=== PATIENT | male | born 1995 | race American Indian/Alaskan Native ===

== ENCOUNTER 2021-08-26 10:32 | Emergency (ER) | payer SELFPAY ==
[2021-08-26] MEDS ORDERED: TETANUS,DIPH,PERTUSS(ACELL) VACCINE 0.5 ML SYRINGE IM ONE (10:41)
[2021-08-26] MEDS ORDERED: MORPHINE 4 MG/1 ML INJ IV ONE ×2 (10:42→11:43)
[2021-08-26] MEDS ORDERED: ONDANSETRON 4 MG/2 ML INJ IV ONE (10:42)
[2021-08-26 10:55] LABS: Hematocrit 44.7 % (35.5-45.6); Hemoglobin 14.5 gm/dl (11.8-15.2); Mean Corpuscular HGB Conc 32 % (32-34); Mean Corpuscular Volume 88 fl (84-94); Platelet Count 195 K/mm3 (140-440); Red Cell Distribution Width 14.4 % (13.2-15.2)
--- NOTE | 2021-08-26 11:06 | XRay Report ---
LEFT FEMUR 2 VIEW(S) INDICATION / CLINICAL INFORMATION: penetrating trauma, L thigh; r/o fb, gas COMPARISON: None available. FINDINGS: BONES / JOINT(S): No acute fracture or subluxation. No significant arthritis. SOFT TISSUES: Soft tissue laceration of the lateral portion of the mid left thigh. Minimal soft tissu e gas. No radiopaque foreign body. ADDITIONAL FINDINGS: None. IMPRESSION: 1. Lateral left thigh soft tissue laceration. No radiopaque foreign body. Signer Name: Ravi Greene MD Signed: 08/26/2021 11:01 AM Workstation Name: [id number]
[2021-08-26 11:09] LABS: Alanine Aminotransferase 31 units/L (7-56); Albumin 4.9 g/dL (3.9-5); BUN/Creatinine Ratio 9; Blood Urea Nitrogen 11 mg/dL (9-20); Calcium 9.9 mg/dL (8.4-10.2); Hemolysis Index 14
[2021-08-26 11:42] LABS: Total Cells Counted 100
[2021-08-26] MEDS ORDERED: SODIUM CHLORIDE 0.9% 1000 ML 1,000 ML IV ONE (11:42)
[2021-08-26 11:45] LABS: Anisocytosis 2+; Ovalocytes Few; Poikilocytosis Few
[2021-08-26 11:46] LABS: Large Platelets Rare; Platelet Estimate Consistent w Auto
--- NOTE | 2021-08-26 12:56 | Cat Scan Report ---
CT angio lower extremity LT INDICATION / CLINICAL INFORMATION: Penetrating trauma to left thigh, eval for vascula. TECHNIQUE: Axial CT images were obtained after injection of 100 mL Omnipaque 350 IV contrast using CTA protocol. 3 plane MIP / 3D reconstructions were produced. All CT scans at this location are performed using CT dose reduction for ALARA by means of automated exposure control. COMPARISON: None available. FINDINGS: Skin wound is seen in the left lateral thigh with subjacent subcutaneous air. There are no focal flui d collections. There is no appreciable hemorrhage. The arteries in the left thigh appear normal throughout. The entire visualized left portion of the ar teries are normal. IMPRESSION: 1. No acute vascular injury in the left lower extremity. Signer Name: Lj Gill MD Signed: 08/26/2021 12:52 PM Workstation Name: [id number]
[2021-08-26] MEDS ORDERED: LIDOCAINE 2%/EPINEPHRINE 1:100,000 VIAL (20 ML) INFILTRATI ONE (12:58)
[2021-08-26] MEDS ORDERED: SODIUM CHLORIDE IRRI 500 ML 500 ML IR ONE (13:27)
[2021-08-26] MEDS ORDERED: traMADol 50 MG TAB PO ONE (14:16)
[2021-08-26] MEDS ORDERED: KETOROLAC 30 MG/1 ML INJ IV ONE (14:17)
--- NOTE | 2021-08-26 14:23 | Emergency Department Report ---
- General Chief Complaint: Puncture Wound Stated Complaint: LEFT LEG WOUND Time Seen by Provider: 08/26/21 10:39 Source: patient Mode of arrival: Ambulatory Limitations: Physical Limitation - History of Present Illness Initial Comments: 26-year-old male with no known past medical history presents for evaluation of traumatic wound to his left thigh. 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 Patient denies any head injury or loss of consciousness. No tingling numbness in his arms or legs. He is not up to date with his tetanus immunization shot. Pain 12/12. He denies pain to any other location of his body. - Related Data Previous Rx's Medication Instructions Recorded Last Taken Type Ibuprofen [Motrin 800 MG tab] 800 mg PO Q8HR PRN 7 Days #21 08/26/21 Unknown Rx tablet cephALEXin [Keflex] 500 mg PO Q6HR 7 Days #28 capsule 08/26/21 Unknown Rx traMADoL [Ultram 50 MG tab] 50 mg PO Q6HR PRN #12 tablet 08/26/21 Unknown Rx Allergies Allergy/AdvReac Type Severity Reaction Status Date / Time No Known Allergies Allergy Verified 08/26/21 10:42 ED Review of Systems ROS: Stated complaint: LEFT LEG WOUND Other details as noted in HPI Comment: All other systems reviewed and negative Constitutional: no symptoms reported Eyes: denies: eye pain, eye discharge, vision change Respiratory: no symptoms reported Cardiovascular: as per HPI Gastrointestinal: as per HPI Genitourinary: as per HPI Musculoskeletal: as per HPI Skin: other (L thigh laceration ) Neurological: denies: headache, weakness, numbness, paresthesias, confusion, abnormal gait, vertigo, other Psychiatric: denies: anxiety, depression, auditory hallucinations, visual hallucinations, homicidal thoughts Hematological/Lymphatic: denies: easy bleeding, easy bruising, swollen glands ED Past Medical Hx - Past Medical History Previous Medical History?: Yes Hx Asthma: Yes - Medications Home Medications: Home Medications Medication Instructions Recorded Confirmed Last Taken Type Ibuprofen [Motrin 800 MG tab] 800 mg PO Q8HR PRN 7 Days #21 08/26/21 Unknown Rx tablet cephALEXin [Keflex] 500 mg PO Q6HR 7 Days #28 capsule 08/26/21 Unknown Rx traMADoL [Ultram 50 MG tab] 50 mg PO Q6HR PRN #12 tablet 08/26/21 Unknown Rx ED Physical Exam - General Limitations: No Limitations, Physical Limitation General appearance: alert, in no apparent distress - Head Head exam: Present: atraumatic, normocephalic, normal inspection - Eye Eye exam: Present: normal appearance, PERRL, EOMI Pupils: Present: normal accommodation - ENT ENT exam: Present: normal exam, normal orophraynx, mucous membranes moist - Neck Neck exam: Present: normal inspection, tenderness, full ROM - Respiratory Respiratory exam: Present: normal lung sounds bilaterally - Cardiovascular Cardiovascular Exam: Present: regular rate, normal rhythm - Extremities Exam Extremities exam: Present: full ROM, tenderness, normal capillary refill, other (5cm horizontal linear laceration to L anterior/medial thigh; no active bleeding, no muscle exposure, no tendon exposure, no visible foreign bodies, no pulsatile masses) - Neurological Exam Neurological exam: Present: alert, oriented X3, CN II-XII intact - Psychiatric Psychiatric exam: Present: normal affect, normal mood - Skin Skin exam: Present: warm, dry, other (Laceration site noted, no active bleeding, patient had intact DP PT pulses in left lower extremity) ED Course Vital Signs 08/26/21 08/26/21 10:38 10:40 Pulse Rate 56 L 54 L Respiratory 18 16 Rate Blood Pressure 131/71 130/71 [Left] O2 Sat by Pulse 99 99 Oximetry - Reevaluation(s) Reevaluation #1: 08/26/21 14:33 Patient is comfortable and well-appearing. Laceration site reexamined. Patient denies any active pain at this time. We will continue to monitor. - Laceration /Wound Repair Left Thigh Wound Location: lower extremity Wound Length (cm): 5 Wound Explored: clean Irrigated w/ Saline (ccs): 500 Betadine Prep?: No Anesthesia: Lidocaine w/ Epi Volume Anesthetic (ccs): 12 Wound Debrided: minimal Number of Sutures: 11 (RAY PLACED) Layer Closure?: Yes Number Deep Layer Sutures: 0 Sterile Dressing Applied?: No Progress: Wound site approximated. Patient noted to have 5 cm laceration to the medial lateral aspect of his left thigh. Patient had no active bleeding. He had significant amount of subcutaneous fat present, less than 0.5 cm which was cut by me to allow for appropriate wound approximation for subsequent placement of ray. Wound site explored and patient had no visible tendons or muscle exposure. There were no visible foreign bodies present in the wound either. 11 ray placed and laceration was repaired by me. Pt tolerated procedure w/o difficulty.. ED Medical Decision Making - Lab Data Result diagrams: 08/26/21 10:40 08/26/21 10:40 - Radiology Data Radiology results: report reviewed - Medical Decision Making 26-year-old male presents for accidental injury to his left thigh, self- inflicted, in the setting of trying to prevent a fall. Vital signs stable. Wound site here has minimal bleeding. Patient was reassessed multiple times and he irma hemodynamically stable and neurovascularly intact. His lab work is grossly unremarkable. X-ray and CT angiogram of left lower extremity demonstrates no acute pathology. Laceration repair options discussed with the patient and the patient agreed to have ray placed. I placed 11 ray into the patient's wound site. Wound site was subsequently completely closed. Overlying Tegaderm was applied. Analgesics provided here with good effect. Patient stable for discharge to home. Advised to return in 10 days, on September 05, 2021, to have ray removed. No further emergent work-up warranted at this time. Patient deemed stable for discharge to home. Prior to discharge she was given strict verbal and written return precautions. Patient verbalized understanding and agreement the plan of care. Critical care attestation.: If time is entered above; I have spent that time in minutes in the direct care of this critically ill patient, excluding procedure time. ED Disposition Clinical Impression: Laceration Disposition: 01 HOME / SELF CARE / HOMELESS Is pt being admited?: No Does the pt Need Aspirin: No Condition: Stable Instructions: Laceration Care, Adult, Sutures, [place], or Adhesive Wound Closure, [id number] Additional Instructions: You have had 11 ray placed to your laceration site. Do not get the site wet for 24 hours. Thereafter, you may gently clean the area with warm soap and water. Be sure to make sure that the area is dried completely. Apply [id number]-[id number] bacitracin ointment, 2-3 times a day for the next 10 days on your laceration site. Because of your injury, you are being placed on oral antibiotics, Keflex, as a precaution. Take 1 tablet 4 times a day for 10 days. Take ibuprofen as needed for pain. For any severe pain, you may take ibuprofen. If your pain is not being improved by ibuprofen, he may take tramadol. Return here, to any emergency department, or to any urgent care center on September 05, 2021, to have your ray removed. Please observe your symptoms very carefully. Return to the nearest emergency department soon as possible if you develop severe worsening pain, yellow drainage from your wound, spreading redness, any fever of 100.4 Fahrenheit or higher, or if any other new worrisome symptoms develop Prescriptions: cephALEXin [Keflex] 500 mg PO Q6HR 7 Days #28 capsule Ibuprofen [Motrin 800 MG tab] 800 mg PO Q8HR PRN 7 Days #21 tablet PRN Reason: Pain, Moderate (4-6) traMADoL [Ultram 50 MG tab] 50 mg PO Q6HR PRN #12 tablet PRN Reason: Pain , Severe (7-10)
[2021-08-26 15:07] VITALS: BP 136/75
== END 2021-08-26 19:11 | disposition home or self-care (01) ==
LOC: ED 10:32
DX: S71.112A Laceration without foreign body, left thigh, initial encounter (principal); J45.909 Unspecified asthma, uncomplicated; W19.XXXA Unspecified fall, initial encounter; Y93.89 Activity, other specified; Y92.89 Other specified places as the place of occurrence of the external cause; Y99.8 Other external cause status
CPT/HCPCS: 12042; 36415; 73551; 73706; 80053; 85007; 85025; 90471; 90715; 96365; 96366; 96375; 96376; 99284; J0690; J1885; J2270; J2405; J3490; J7030; Q9967

== ENCOUNTER 2021-09-06 03:17 | Emergency (ER) | payer SELFPAY | END 2021-09-06 05:00 | disposition left against medical advice (07) | LOC: ED 03:17 | DX: Z48.02 Encounter for removal of sutures (principal); Z53.21 Procedure and treatment not carried out due to patient leaving prior to being seen by health care provider ==

== ENCOUNTER 2021-09-08 19:52 | Emergency (ER) | payer SELFPAY ==
[2021-09-08 20:43] VITALS: BP 128/60
--- NOTE | 2021-09-08 20:57 | Emergency Department Report ---
ED General Adult HPI - General Chief complaint: Laceration/Recheck/Suture Stated complaint: RAY REMOVED Source: patient Mode of arrival: Ambulatory Limitations: No Limitations - History of Present Illness Initial comments: Patient is a 26-year-old -[place] male with no past medical history who presents to the ED with complaint of acute onset persistent painful anterior left thigh pain with mild erythematous rash around the recently stapled laceration wound on anterior left thigh 2 weeks ago. Patient states that the wound was initially sustained after he accidentally cut his left thigh and came to the ED and was stable. Patient states that the pain has been persistent and also admits that he never purchased any medications that were previously prescribed. Patient denies dizziness, syncope, fever, chills, nausea and vomiting, numbness and tingling or weakness of lower extremities bilaterally, cough, chest pain or shortness of breath. MD Complaint: LEFT THIGH WOUND RECHECK; [place] removal -: week(s) (2) Location: lower extremity (left thigh) Radiation: non-radiation Severity scale (0 -10): 6 Quality: aching, dull Consistency: constant Improves with: none Worsens with: movement Associated Symptoms: denies other symptoms. denies: confusion, chest pain, cough, diaphoresis, fever/chills, headaches, malaise, nausea/vomiting, rash, shortness of breath, syncope, other Treatments Prior to Arrival: none - Related Data Previous Rx's Medication Instructions Recorded Last Taken Type traMADoL [Ultram 50 MG tab] 50 mg PO Q6HR PRN #12 tablet 08/26/21 Unknown Rx Ibuprofen [Motrin 800 MG tab] 800 mg PO Q8HR PRN 7 Days #30 09/08/21 Unknown Rx tablet cephALEXin [Keflex] 500 mg PO Q6HR 10 Days #40 capsule 09/08/21 Unknown Rx Allergies Allergy/AdvReac Type Severity Reaction Status Date / Time No Known Allergies Allergy Verified 08/26/21 10:42 ED Review of Systems ROS: Stated complaint: RAY REMOVED Other details as noted in HPI Constitutional: denies: chills, fever Eyes: denies: eye pain, eye discharge, vision change ENT: denies: ear pain, throat pain Respiratory: denies: cough, shortness of breath, wheezing Cardiovascular: denies: chest pain, palpitations Endocrine: no symptoms reported Gastrointestinal: denies: abdominal pain, nausea, diarrhea Genitourinary: denies: urgency, dysuria Musculoskeletal: arthralgia (left thigh pain due to stapled laceration wound). denies: back pain, joint swelling Skin: rash (mildly erythematous rash on left thigh around a previously stapled wound), change in color. denies: lesions, change in hair/nails, pruritus Neurological: denies: headache, weakness, paresthesias Psychiatric: denies: anxiety, depression Hematological/Lymphatic: denies: easy bleeding, easy bruising ED Past Medical Hx - Past Medical History Hx Asthma: Yes - Medications Home Medications: Home Medications Medication Instructions Recorded Confirmed Last Taken Type traMADoL [Ultram 50 MG tab] 50 mg PO Q6HR PRN #12 tablet 08/26/21 Unknown Rx Ibuprofen [Motrin 800 MG tab] 800 mg PO Q8HR PRN 7 Days #30 09/08/21 Unknown Rx tablet cephALEXin [Keflex] 500 mg PO Q6HR 10 Days #40 capsule 09/08/21 Unknown Rx ED Physical Exam - General Limitations: No Limitations General appearance: alert, in no apparent distress - Head Head exam: Present: atraumatic, normocephalic, normal inspection - Eye Eye exam: Present: normal appearance, PERRL, EOMI Pupils: Present: normal accommodation - ENT ENT exam: Present: normal exam, normal orophraynx, mucous membranes moist, TM's normal bilaterally, normal external ear exam - Neck Neck exam: Present: normal inspection, full ROM - Respiratory Respiratory exam: Present: normal lung sounds bilaterally. Absent: respiratory distress, wheezes, rales, rhonchi, stridor, chest wall tenderness, accessory muscle use, decreased breath sounds, prolonged expiratory - Cardiovascular Cardiovascular Exam: Present: regular rate, normal rhythm, normal heart sounds. Absent: systolic murmur, diastolic murmur, rubs, gallop - GI/Abdominal GI/Abdominal exam: Present: soft, normal bowel sounds. Absent: tenderness, guarding, rebound, hyperactive bowel sounds, hypoactive bowel sounds, organomegaly - Extremities Exam Extremities exam: Present: normal inspection, full ROM, tenderness (Palpable localized anterior left thigh tenderness due to a recently stapled laceration wound), normal capillary refill. Absent: pedal edema, joint swelling, calf tenderness - Back Exam Back exam: Present: normal inspection, full ROM. Absent: tenderness, CVA tenderness (R), CVA tenderness (L), muscle spasm, paraspinal tenderness, vertebral tenderness - Neurological Exam Neurological exam: Present: alert, oriented X3, CN II-XII intact, normal gait, reflexes normal - Psychiatric Psychiatric exam: Present: normal affect, normal mood - Skin Skin exam: Present: warm, dry, intact, normal color, rash (Mildly erythematous rash around a recently stapled laceration wound on left thigh), erythema ED Course Vital Signs 09/08/21 20:07 Temperature 98.3 F Pulse Rate 64 Respiratory 18 Rate Blood Pressure 128/60 O2 Sat by Pulse 98 Oximetry ED Medical Decision Making - Medical Decision Making This is a 26-year-old -[place] male with no past medical history who presents to the ED with complaint of acute onset persistent painful anterior left thigh pain with mild erythematous rash around the recently stapled laceration wound on anterior left thigh 2 weeks ago. Patient states that the wound was initially sustained after he accidentally cut his left thigh and came to the ED and was stable. Patient states that the pain has been persistent and also admits that he never purchased any medications that were previously prescribed. In the ED, patient is alert and oriented x3 and is not in any distress. Patient is hemodynamically stable. The ray were successfully removed and the wound was dressed appropriately after cleaning with 100 cc of normal saline. Patient was discharged home on pain medication and antibiotics and advised to follow-up with his primary care physician in 7 to 10 days for reevaluation or return to the ED immediately if symptoms get worse. - Differential Diagnosis T; wound infection; Critical care attestation.: If time is entered above; I have spent that time in minutes in the direct care of this critically ill patient, excluding procedure time. ED Disposition Clinical Impression: Cellulitis of left thigh, Encounter for removal of ray Disposition: HOME / SELF CARE / HOMELESS Is pt being admited?: No Does the pt Need Aspirin: No Condition: Stable Instructions: Cellulitis, Adult, [id number], Wound Closure Removal, Care After Additional Instructions: Take medication with food, drink plenty of fluids, follow-up with your primary care physician in 7 to 10 days for reevaluation. Return to the ED immediately if symptoms get worse. Prescriptions: cephALEXin [Keflex] 500 mg PO Q6HR 10 Days #40 capsule Ibuprofen [Motrin 800 MG tab] 800 mg PO Q8HR PRN 7 Days #30 tablet PRN Reason: Pain , Severe (7-10) Referrals: [facility] [Provider Group] - 7-10 days Time of Disposition: 20:57 Print Language: LITHUANIAN
== END 2021-09-08 21:08 | disposition home or self-care (01) ==
LOC: ED 19:52
DX: L03.116 Cellulitis of left lower limb (principal); Z48.02 Encounter for removal of sutures; J45.909 Unspecified asthma, uncomplicated
CPT/HCPCS: 99282